=== PATIENT | female | born 1995 | race Caucasian/White ===

== ENCOUNTER 2019-09-12 14:36 | Emergency (ER) | payer OTHER ==
[~2019-09-12] VITALS: Ht 152.4 cm; Wt 65.9 kg
[2019-09-12 14:39] VITALS: TEMP 98.7
[2019-09-12] MEDS ORDERED: AMOXICILLIN 8751 TAB PO (15:27)
[2019-09-12 15:42] VITALS: BP 165/121; PULSE 86
== END 2019-09-12 15:42 | disposition home or self-care (01) ==
LOC: COL.ER 14:36
DX: S61.432A Puncture wound without foreign body of left hand, initial encounter (principal); W54.0XXA Bitten by dog, initial encounter; Y92.009 Unspecified place in unspecified non-institutional (private) residence as the place of occurrence of the external cause